=== PATIENT | female | born 1980 | race Asian ===

== ENCOUNTER 2017-06-30 02:50 | Inpatient (IN) | payer OTHER ==
[~2017-06-30] VITALS: Ht 154.9 cm; Wt 86.0 kg
[2017-06-30] VITALS (7 sets, daily range): BP systolic 114–129; BP diastolic 60–76
[~2017-06-30 02:50] MED LIST: DOCU10CA PO; IBUP80TA PO; PERCOCET PO; VITAPRTA PO
[2017-06-30] MEDS ORDERED: OXYTOCIN 30 UNITS IN 0.9% NaCl 500ML IV BAG (J2590) As Ordered ONE (03:17)
[2017-06-30] MEDS ORDERED: LR 1,000 ML IV SCH (04:10)
[2017-06-30] MEDS ORDERED: PENICILLIN G POTASSIUM IV 5 MU in D5W MINI-BAG PLUS 100 ML IV STA (04:10)
[2017-06-30] MEDS ORDERED: LIDOCAINE 1% MDV INJ 50 ML VIAL SC ONE (04:15)
[2017-06-30] MEDS ORDERED: LACTATED RINGER'S 1000 ML IV ONE (04:15)
[2017-06-30 04:20] LABS: CORD GAS ABE A -3.7; CORD GAS HCO3 A 26.5 MEQ/L; CORD GAS O2 SAT A 24.4 %; CORD GAS PCO2 A 71.6 mmHg; CORD GAS PH A 7.187 UNITS; CORD GAS PO2 A 15.7 mmHg; CORD GAS SBC A 19.6 MEQ/L; CORD GAS TCO2 A 28.7 MEQ/L
[2017-06-30 04:21] LABS: MEAN CORPUSCULAR HEMOGLOBIN 31.7 pg (27.0-33.0); MEAN CORPUSCULAR HGB CONC 35.5 g/dl (32.0-36.5); MEAN CORPUSCULAR VOLUME 89.1 fl (80.0-96.0); PLATELET COUNT, AUTOMATED 317 10^3/uL (150-450); RED CELL DISTRIBUTION WIDTH 12.1 % (11.5-14.5); WHITE BLOOD COUNT 14.8 10^3/uL (4.0-10.0)
[2017-06-30 04:24] LABS: CORD GAS HCO3 V 23.6 MEQ/L; CORD GAS O2 SAT V 81.4 %; CORD GAS PCO2 V 47.6 mmHg; CORD GAS PH V 7.314 UNITS; CORD GAS PO2 V 34.8 mmHg; CORD GAS SBC V 21.6 MEQ/L; CORD GAS TCO2 V 25.1 MEQ/L
[2017-06-30] MEDS ORDERED: OXYTOCIN DRIP 30 UNITS in APPROPRIATE DILUENT 1 EA IV SCH (04:30)
[2017-06-30] MEDS ORDERED: MOM 30ML SUSPENSION UDC PO PRN (04:30)
[2017-06-30] MEDS ORDERED: MEASLES,MUMPS,RUBELLA VACCINE INJ (MMR-II) (90707) SC SCH (04:30)
[2017-06-30] MEDS ORDERED: DIBUCAINE 1% OINTMENT 30GM TOP PRN (04:30)
[2017-06-30] MEDS ORDERED: METHYLERGONOVINE MALEATE 0.2 MG TAB PO PRN (04:30)
[2017-06-30] MEDS ORDERED: DOCUSATE SODIUM 100 MG CAP PO PRN (04:30)
[2017-06-30] MEDS ORDERED: RHOGAM 300 MCG (1500 IU) INJ (J2790) IM SCH (04:30)
[2017-06-30] MEDS ORDERED: ACETAMINOPHEN 500 MG TAB PO PRN (04:30)
[2017-06-30] MEDS ORDERED: ANUSOL HC CREAM 30GM TOP PRN (04:30)
[2017-06-30] MEDS ORDERED: IBUPROFEN 800 MG TAB PO PRN (04:30)
[2017-06-30] MEDS ORDERED: OXYTOCIN INJ 10 UNITS/ML VIAL (J2590) IV ONE (06:00)
[2017-06-30] MEDS ORDERED: OXYTOCIN INJ 10 UNITS/ML VIAL (J2590) As Ordered ONE (06:11)
[2017-06-30] MEDS ORDERED: PENICILLIN G POTASSIUM IV 2.5 MU in D5W 100 ML IV SCH (08:15)
--- NOTE | 2017-06-30 09:20 | DN ---
DATE: 06/30/2017 This is a 37-year-old 2 who was admitted in active labor with spontaneous rupture of membranes, clear liquor. She is booked for an elective repeat section because of failure to descend 5 days from now. On examination, she was found to be fully dilated at zero station, and she requested to have a trial of labor after (TOLAC). She had a spontaneous vaginal delivery of a live male infant, 7 pounds 1 ounce, 3200 grams, score of 9 and 9 at one and five minutes respectively. Cord was around the neck times three. Arterial pH 7.18, base excess -3.7, venous pH 7.31, base excess -3.0. Placenta delivered spontaneously thereafter. Three-vessel cord. Membranes and tissues intact. Digital examination of the lower segment was intact. Uterus contracted well down on Pitocin. She had a of vascular varicosity on the left side in the introital area; it was oversewn with #2-0 Vicryl on J339. Uterus contracted well down on Pitocin. Her Group B streptococcus (GBS) status was unknown, and there was no time for intravenous (IV) prophylaxis at the present time. In summary, we have a TOLAC with a successful the vaginal after () of a live male . The patient and baby tolerated procedure well.
[2017-06-30] MEDS: PRENATAL VITAMINS CHEWABLE TABLET PO SCH (10:02)
--- NOTE | 2017-06-30 21:11 | HPE ---
DATE OF ADMISSION: 06/30/2017 This lady is a 37-year-old 2, para 1, last menstrual period (LMP) of 09/29/2016, estimated date of confinement (EDC) 07/12/2017, at 38 and 2 weeks of gestation in active labor who was booked for elective repeat section in 5 days. Risk factors: She is an advanced maternal age (AMA), a previous section for failure to descend. Past history: In 2014 at 39 weeks, section for failure to descend, 8 pounds 13 ounces female. Labs are B positive, HIV negative, hepatitis negative, RPR negative, rubella immune. Varicella immune. Pap normal. Urine negative. Gonorrhea and chlamydia are negative. 1-hour glucose 104. GBS status is not recorded. On examination, this lady is in active labor in acute distress. She had a spontaneous rupture of membranes all over the floor, clear liquor. Pelvic examination: She is fully dilated at -1 station and is requesting to have a trial of labor after section (TOLAC). Blood pressure is 114/62, respirations 20, pulse 72, temperature 97.9. The rest of the examination was unremarkable. Category one strip. Normocephalic, atraumatic. Neck full range of motion. Pupils equal and reactive to light. Distal pulses are symmetric. No evidence of deep venous thrombosis (DVT), pulmonary embolus (PE) or superficial phlebitis. Lungs are clear bilaterally to bases. No wheezes or rhonchi. No costovertebral angle (CVA) tenderness. Four quadrant bowel sounds are noted. Incision is noted. Nontender. Category one strip. No rashes, lesions or pruritus. No arthralgia or myalgia. No complaints of cough, wheezes, shortness of breath or dyspnea on exertion. No chest pain, not bleeding. Neurologically complete. No incontinency, urgency or frequency. No nausea, vomiting, diarrhea or constipation. No diabetic issues. 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 No past medical history. Surgical history, section. Family history noncontributory. She does not smoke, drink, abuse drugs and there is no domestic violence. She is to a soldier, has good support. In summary, we have a term gestation in active labor with spontaneous rupture of membranes, fully dilated and requesting a trial of labor after section (TOLAC). Risks and benefits of TOLAC were discussed including hemorrhage, perforation, distress, stat section, remote blood transfusion, remote hysterectomy. The patient accepts and understands the consequences. We anticipate a successful TOLAC.
--- NOTE | 2017-06-30 21:12 | IPN ---
DATE OF SERVICE: 06/30/2017 This patient and her have requested circumcision of their male . After discussing risks, benefits of circumcision, medical and nonmedical indications, penile block and aftercare and risk factors, expressed understanding of penile block, aftercare and risk factors, signed and witnessed the consent form. We answered all questions. We await the clearance by the intellectual property manager.
[2017-07-01 06:00] VITALS: BP 103/55
--- NOTE | 2017-07-01 09:03 | IPN ---
DATE OF SERVICE: 07/01/2017 This lady is a 37-year-old now 2, para 2 who has spontaneous labor, spontaneous rupture of membranes. She was booked for elective repeat section 5 days from now, however on admission, she was found to be fully dilated and we discussed trial of labor after section (TOLAC) issues and she agreed to a trial of labor after section. She was successful vaginal after section live male infant, 7 pounds 1 ounce, 3200 grams. of 9 and 9 at one and five minutes respectfully. Cord around the neck times three. Arterial pH 7.18, base excess -3.7, venous pH 7.31, base excess -3.0. We discussed phlebitis, cystitis, mastitis, endometritis and cellulitis, diet, excise, pain management, perineal, breast and wound care. She is planning having an intrauterine contraceptive device (IUCD) Mirena at her 6-week checkup. Her hemoglobin is 13.9, hematocrit 39.1 and platelets were 317. Her vital signs today: Her blood pressure is 103/55, respirations 18, pulse 76, temperature 99.1. The patient is anxious to get home tomorrow. Had an excellent experience as a trial of labor after section, vaginal after section. We are planning on discharge for tomorrow morning.
[2017-07-01] MEDS: PRENATAL VITAMINS CHEWABLE TABLET PO SCH (09:16)
[2017-07-01 18:10] VITALS: BP 115/72
[2017-07-02 06:00] VITALS: BP 105/59
[2017-07-02] MEDS: PRENATAL VITAMINS CHEWABLE TABLET PO SCH (08:07)
[2017-07-02] MEDS ORDERED: COLA100C5 PO (10:27)
[2017-07-02] MEDS ORDERED: IBUP-1114 PO (10:27)
[2017-07-02] MEDS ORDERED: ACET50TA PO (10:27)
== END 2017-07-02 11:30 | disposition home or self-care (01) | DRG 775 ==
LOC: M LDO 02:50 → M LDI 03:00 → M OBS 06:29
PROVIDERS: ADMIT Obstetrics & Gynecology; ATTEND Obstetrics & Gynecology
PROC: 10E0XZZ Delivery of Products of Conception, External Approach (ICD-10-PCS; principal; 2017-06-30)
DX: O34.211 Maternal care for low transverse scar from previous cesarean delivery (principal); Z37.0 Single live birth; Z3A.38 38 weeks gestation of pregnancy; O09.523 Supervision of elderly multigravida, third trimester; O69.82X0 Labor and delivery complicated by other cord entanglement, without compression, not applicable or unspecified; I86.8 Varicose veins of other specified sites; O22.13 Genital varices in pregnancy, third trimester